=== PATIENT | female | born 1940 | race Caucasian/White ===

== ENCOUNTER 2017-10-25 14:54 | Outpatient (CLI) | payer MEDICARE ==
--- NOTE | 2017-10-25 18:37 | RAD ---
THREE VIEWS RIGHT HAND: Date: 10-25-17 Comparison: None. History: Arthritis with pain. FINDINGS: There is no acute fracture or evidence of dislocation seen. There is prominent disc space narrowing with subchondral sclerosis and osteophyte formation involving the fifth proximal and distal interphalangeal joint as well as the third distal interphalangeal join t and the second proximal and distal interphalangeal joints. Similar findings are seen involving the first interphalangeal joint. No displaced fracture or dislocation is seen. 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 POS: [facility]
--- NOTE | 2017-10-25 18:39 | RAD ---
THREE VIEWS LEFT HAND: Date: 10-25-17 Comparison: None. History: Pain, arthritis. FINDINGS: There are severe osteoarthritic changes involving the first interphalangeal joint, the distal interph alangeal joints of the second, third, and fifth fingers, and the proximal interphalangeal joints of t he third and fifth fingers. There is no acute fracture or evidence of dislocation. There are erosive changes noted at the third distal interphalangeal joint region. 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 POS: [facility]
[2017-10-27 12:09] LABS: CCP IgG Antibody 0.7 EliAU/mL (<7 Negative); EliA RAS New Method **** NEW METHOD ****; Rheumatoid Factor IgA Antibody 1.7 IU/mL (<14 Negative); Rheumatoid Factor IgM Antibody 0.6 IU/mL (<3.5 Negative)
== END 2017-10-25 14:55 | disposition home or self-care (01) ==
LOC: SCSRAD 14:54
PROVIDERS: ATTEND Family Medicine
DX: M79.644 Pain in right finger(s) (principal); M79.645 Pain in left finger(s); M19.041 Primary osteoarthritis, right hand
CPT/HCPCS: 36415; 83520; 85652; 86140; 86200

== ENCOUNTER 2018-07-15 12:47 | Outpatient (CLI) | payer MEDICARE | END 2018-07-15 12:48 | disposition home or self-care (01) | LOC: BICMAMMO 12:47 | PROVIDERS: ATTEND Family Medicine | DX: Z12.31 Encounter for screening mammogram for malignant neoplasm of breast (principal); Z80.3 Family history of malignant neoplasm of breast | CPT/HCPCS: 77063; 77067 ==

== ENCOUNTER 2019-07-17 13:49 | Outpatient (CLI) | payer MEDICARE ==
--- NOTE | 2019-07-17 14:53 | BD ---
BONE DENSITOMETRY USING DEXA: HISTORY: Postmenopausal screening for osteoporosis, asymptomatic menopausal state. FINDINGS: Lumbar Spine: BMD (g/cm2) L1 0.873 T-Score: -1.1 Z-Score: 1.2 L2 0.993 T-Score: -0.3 Z-Score: 2.2 L3 1.013 T-Score: -0.6 Z-Score: 2.0 L4 0.985 T-Score: -0.7 Z-Score: 2.1 L1-L4 0.966 T-Score: 0.7 Z-Score: 1.9 Femoral Neck: 0.623 T-Score: -2.0 Z-Score: 0.2 Total Femur: 0.816 T-Score: -1.0 Z-Score: 0.9 The 10-year fracture risk for a major osteoporotic fracture is 18% and for a hip fracture is 5.8%. Impression: Osteopenia. POS: [facility]
--- NOTE | 2019-07-17 15:23 | MMO ---
Bilateral MAMMO Bilat Screen [facility]. CLINICAL HISTORY: Patient is 79 years old and is seen for screening. The patient has the following family history of breast cancer: mother, malignant (generic) and 2 sisters. The patient has no personal history of cancer. VIEWS: The views performed were: bilateral craniocaudal with tomosynthesis; bilateral mediolateral oblique with tomosynthesis; and bilateral exaggerated craniocaudal. FILMS COMPARED: The present examination has been compared to prior imaging studies performed at [facility] on 07/07/2013, 08/19/2015, 03/17/2017 and 07/15/2018. This study has been interpreted with the assistance of computer-aided detection. MAMMOGRAM FINDINGS: The breasts are heterogeneously dense, which could obscure a lesion on mammography. There are no suspicious masses, suspicious calcifications, or new areas of architectural distortion. IMPRESSION: THERE IS NO MAMMOGRAPHIC EVIDENCE OF MALIGNANCY. A ROUTINE FOLLOW-UP MAMMOGRAM IN 1 YEAR IS RECOMMENDED. THE RESULTS OF THIS EXAM WERE SENT TO THE PATIENT. ACR BI-RADS Category 1 - Negative MAMMOGRAPHY NOTE: 1. A negative mammogram report should not delay a biopsy if a dominant of clinically suspicious mass is present. 2. Approximately 10% to 15% of breast cancers are not detected by mammography. 3. Adenosis and dense breasts may obscure an underlying neoplasm. Reported by: CHERELLE ANNA MD Electonically Signed: [id number]
== END 2019-07-17 13:50 | disposition home or self-care (01) ==
LOC: BICMAMMO 13:49
PROVIDERS: ATTEND Family Medicine
DX: Z12.31 Encounter for screening mammogram for malignant neoplasm of breast (principal); Z13.820 Encounter for screening for osteoporosis; Z78.0 Asymptomatic menopausal state; Z80.3 Family history of malignant neoplasm of breast; M85.80 Other specified disorders of bone density and structure, unspecified site
CPT/HCPCS: 77063; 77067; 77080

== ENCOUNTER 2022-07-16 08:21 | Outpatient (CLI) | payer MEDICARE | END 2022-07-16 08:22 | disposition home or self-care (01) | LOC: MRI 08:21 | PROVIDERS: ATTEND Family Medicine | DX: R93.7 Abnormal findings on diagnostic imaging of other parts of musculoskeletal system (principal); R51.9 Headache, unspecified; R41.82 Altered mental status, unspecified; M47.816 Spondylosis without myelopathy or radiculopathy, lumbar region; M47.817 Spondylosis without myelopathy or radiculopathy, lumbosacral region; M47.815 Spondylosis without myelopathy or radiculopathy, thoracolumbar region; G58.9 Mononeuropathy, unspecified; M47.812 Spondylosis without myelopathy or radiculopathy, cervical region; M47.813 Spondylosis without myelopathy or radiculopathy, cervicothoracic region | CPT/HCPCS: 70553; 72156; 72157; 72158 ==

== ENCOUNTER 2022-10-30 08:59 | Outpatient (CLI) | payer MEDICARE ==
[2022-10-30] MEDS ORDERED: Magnevist 469MG/ML 20 ML VIAL ONE (14:40)
== END 2022-10-30 09:00 | disposition home or self-care (01) ==
LOC: MRI 08:59
PROVIDERS: ATTEND Neurological Surgery
DX: D49.7 Neoplasm of unspecified behavior of endocrine glands and other parts of nervous system (principal)
CPT/HCPCS: 72158; A9579

== ENCOUNTER 2025-03-28 09:27 | Outpatient (CLI) | payer MEDICARE | END 2025-03-28 09:28 | disposition home or self-care (01) | LOC: RAD 09:27 | PROVIDERS: ATTEND Internal Medicine Critical Care Medicine | DX: J44.9 Chronic obstructive pulmonary disease, unspecified (principal) | CPT/HCPCS: 71046 ==

== ENCOUNTER 2025-03-28 10:21 | Outpatient (CLI) | payer MEDICARE | END 2025-03-28 10:22 | disposition home or self-care (01) | LOC: BICCT 10:21 | PROVIDERS: ATTEND Internal Medicine Critical Care Medicine | DX: J18.9 Pneumonia, unspecified organism (principal); J98.4 Other disorders of lung; J98.09 Other diseases of bronchus, not elsewhere classified; R91.8 Other nonspecific abnormal finding of lung field; J44.9 Chronic obstructive pulmonary disease, unspecified | CPT/HCPCS: 71046; 71250 ==